=== PATIENT | female | born 1940 | race American Indian/Alaskan Native ===

== ENCOUNTER 2019-02-05 12:10 | Inpatient (IN) | payer MEDICARE ==
[2019-02-05] MEDS ORDERED: Albuterol-Ipratrop 3 mg / 0.5 (3 ml) UD IH STA (14:48)
[2019-02-05] MEDS ORDERED: Albuterol 0.083% Inhal Sol (2.5 mg/3 mL) UD INH STA (14:48)
[2019-02-05] MEDS ORDERED: Albuterol 0.083% Inhal Sol (2.5 mg/3 mL) UD ONE (16:11)
[2019-02-05] MEDS ORDERED: Albuterol-Ipratrop 3 mg / 0.5 (3 ml) UD ONE (16:11)
--- NOTE | 2019-02-05 16:58 | RAD ---
Chest x-ray single frontal view HISTORY: Dyspnea. COMPARISON: None available. FINDINGS: Biapical pleural thickening with upper lobe granulomatous changes. Patchy confluent rounded consolidative opacity at the right lung base. Clinical correlation. Post treatment interval follow-up would be helpful to ensure resolution and exclude underlying lesion. Alternatively, correlation with chest CT may be helpful. Diffuse increased interstitial lung markings. Tortuous aorta. Heart size within normal limits. Degenerative changes in the spine and shoulders. Impression: Patchy confluent rounded consolidative opacity at the right lung base. Clinical correlation. Post treatment interval follow-up would be helpful to ensure resolution and exclude underlying lesion. Alternatively, correlation with chest CT may be helpful. Diffuse increased interstitial lung markings. Biapical pleural thickening with upper lobe granulomatous changes. Tortuous aorta. This case was placed in the PA review folder.
[2019-02-05 17:06] LABS: ALB/GLOB RATIO 0.9 (1.0-2.1); ALBUMIN 3.4 g/dL (3.5-5.0); BLOOD UREA NITROGEN 17 mg/dL (7-17); CALCIUM 9.3 mg/dl (8.6-10.4); GFR NON-AFRICAN AMERICAN > 60
[2019-02-05 17:12] LABS: ALT/SGPT 10 U/L (9-52); AST/SGOT 51 U/L (14-36)
[2019-02-05 17:17] LABS: B-TYPE NATRIURETIC PEPTIDE 1200 pg/mL (0-900); CK-MB 0.79 ng/mL (0.0-3.38)
--- NOTE | 2019-02-05 17:29 | C.PDOC ---
History Of Present Illness 79 y/o female brought to ER by ambulance for evaluation of subjective fever, productive cough w/ thick mucus, and shortness of breath which has been present for the past 1 week. Patient states that she went to her PMD today and she was found to have O2 saturation level 88. referred her to the ER. Denies having CP, nausea, vomiting, and abdominal pain. <Ivett Espinal - Last Filed: 02/05/19 18:41> History Per: Patient History/Exam Limitations: no limitations Onset/Duration Of Symptoms: Days Current Symptoms Are (Timing): Still Present Severity: Moderate <Ivett Espinal - Last Filed: 02/05/19 18:41> <Aminata Blanco - Last Filed: 02/05/19 19:21> Time Seen by Provider: 02/05/19 14:27 Chief Complaint (Nursing): Cough, Cold, Congestion Past Medical History Reviewed: Historical Data, Nursing Documentation, Vital Signs Vital Signs: Last Vital Signs Temp 99.2 F 02/05/19 13:33 Pulse 112 H 02/05/19 16:54 Resp 20 02/05/19 16:54 BP 134/63 02/05/19 16:54 Pulse Ox 98 02/05/19 16:54 - Medical History PMH: Alzheimer's Disease, Asthma, HTN, Hypercholesterolemia Surgical History: No Surg Hx Family History: States: No Known Family Hx - Social History Hx Tobacco Use: No Hx Alcohol Use: No Hx Substance Use: No - Immunization History Hx Tetanus Toxoid Vaccination: No Hx Influenza Vaccination: No Hx Pneumococcal Vaccination: No <Ivett Espinal - Last Filed: 02/05/19 18:41> Vital Signs: Last Vital Signs Temp 101.3 F H 02/05/19 18:30 Pulse 112 H 02/05/19 16:54 Resp 20 02/05/19 16:54 BP 134/63 02/05/19 16:54 Pulse Ox 98 02/05/19 18:45 <Aminata Blanco - Last Filed: 02/05/19 19:21> Review Of Systems Except As Marked, All Systems Reviewed And Found Negative. Constitutional: Positive for: Fever (subjective fever) Cardiovascular: Negative for: Chest Pain Respiratory: Positive for: Cough, Shortness of Breath Gastrointestinal: Negative for: Nausea, Vomiting <Ivett Espinal - Last Filed: 02/05/19 18:41> Physical Exam - Physical Exam Appears: Non-toxic, No Acute Distress Skin: Normal Color, Warm, Dry Head: Atraumatic, Normacephalic Eye(s): bilateral: Normal Inspection Nose: Normal Oral Mucosa: Moist Neck: Supple Chest: Symmetrical Cardiovascular: Rhythm Regular Respiratory: Decreased Breath Sounds, No Rales, No Rhonchi, No Wheezing Gastrointestinal/Abdominal: Normal Exam, Soft, No Tenderness, No Guarding, No Rebound Neurological/Psych: Oriented x3, Normal Speech <RobertnhanIvett - Last Filed: 02/05/19 18:41> ED Course And Treatment - Laboratory Results Result Diagrams: 02/05/19 17:37 02/05/19 16:43 Lab Results: Troponin I 0.0380 ng/mL (0.00-0.120) 02/05/19 16:43 NT-Pro-B Natriuret Pep 1200 pg/mL (0-900) H 02/05/19 16:43 Total Bilirubin 1.0 mg/dL (0.2-1.3) 02/05/19 16:43 AST 51 U/L (14-36) H 02/05/19 16:43 ALT 10 U/L (9-52) 02/05/19 16:43 Alkaline Phosphatase 81 U/L (38-126) 02/05/19 16:43 Total Protein 7.2 g/dL (6.3-8.3) 02/05/19 16:43 Albumin 3.4 g/dL (3.5-5.0) L D 02/05/19 16:43 Globulin 3.8 gm/dL (2.2-3.9) 02/05/19 16:43 Albumin/Globulin Ratio 0.9 (1.0-2.1) L 02/05/19 16:43 O2 Sat by Pulse Oximetry: 98 (RA) Pulse Ox Interpretation: Normal - Other Rad CXR X-Ray: Viewed By Me, Read By Radiologist Interpretation: Chest x-ray single frontal view. HISTORY: Dyspnea. COMPARISON: None available. FINDINGS: Biapical pleural thickening with upper lobe granulomatous changes. Patchy confluent rounded consolidative opacity at the right lung base. Clinical correlation. Post treatment interval follow-up would be helpful to ensure resolution and exclude underlying lesion. Alternatively, correlation with chest CT may be helpful. Diffuse increased interstitial lung markings. Tortuous aorta. Heart size within normal limits. Degenerative changes in the spine and shoulders. Impression: Patchy confluent rounded consolidative opacity at the right lung base. Clinical correlation. Post treatment interval follow-up would be helpful to ensure resolution and exclude underlying lesion. Alternatively, correlation with chest CT may be helpful. Diffuse increased interstitial lung markings. Biapical pleural thickening with upper lobe granulomatous changes. Tortuous aorta. Progress Note: Labs and CXR ordered. Patient treated with nebs. CXR consistant with pneumonia. Rectal temp 101.3F. Tylenol given. Rocephin/Zithromax ordered. DDimer is significantly elevated. CTA chest ordered. Case was d/w who will accept the patient to his service, but wants CTA to be done first. <Ivett Espinal - Last Filed: 02/05/19 18:41> - Laboratory Results Result Diagrams: 02/05/19 17:37 02/05/19 16:43 Lab Results: PT 14.3 SECONDS (9.7-12.2) H 02/05/19 17:37 INR 1.3 02/05/19 17:37 APTT 24 SECONDS (21-34) 02/05/19 17:37 D-Dimer, Quantitative 5047 ng/mlDDU (0-243) H 02/05/19 17:37 Troponin I 0.0380 ng/mL (0.00-0.120) 02/05/19 16:43 NT-Pro-B Natriuret Pep 1200 pg/mL (0-900) H 02/05/19 16:43 Total Bilirubin 1.0 mg/dL (0.2-1.3) 02/05/19 16:43 AST 51 U/L (14-36) H 02/05/19 16:43 ALT 10 U/L (9-52) 02/05/19 16:43 Alkaline Phosphatase 81 U/L (38-126) 02/05/19 16:43 Total Protein 7.2 g/dL (6.3-8.3) 02/05/19 16:43 Albumin 3.4 g/dL (3.5-5.0) L D 02/05/19 16:43 Globulin 3.8 gm/dL (2.2-3.9) 02/05/19 16:43 Albumin/Globulin Ratio 0.9 (1.0-2.1) L 02/05/19 16:43 <Aminata Blanco - Last Filed: 02/05/19 19:21> Critical Care Time - Critical Care Note Total Time (in mins): 30 Documented critical care: time excludes all time spent performing seperately billable procedures. <Aminata Blanco - Last Filed: 02/05/19 19:21> Disposition - Disposition Disposition Time: 18:43 <Ivett Espinal - Last Filed: 02/05/19 18:41> Discussed With Dr.: Rocky Lewis Comment: accepted the pt on his service and took over the care at 7:20 PM Doctor Will See Patient In The: ED Counseled Patient/Family Regarding: Studies Performed, Diagnosis <Aminata Blanco - Last Filed: 02/05/19 19:21> - Disposition Disposition: HOSPITALIZED Condition: SERIOUS Forms: [facility] (Z[place]ian) - Clinical Impression Clinical Impression: Pneumonia, Hypoxia - PA / NURSING SPECIALIST / Resident Statement MD/DO has reviewed & agrees with the documentation as recorded. - Scribe Statement The provider has reviewed the documentation as recorded by the Yaryibe Chaz Rodriges Provider Attestation All medical record entries made by the Scribe were at my direction and personally dictated by me. I have reviewed the chart and agree that the record accurately reflects my personal performance of the history, physical exam, medical decision making, and the department course for this patient. I have also personally directed, reviewed, and agree with the discharge instructions and disposition. <Ivett Espinal - Last Filed: 02/05/19 18:41> Physician Patient Turnover Patient Signed Over To: Aminata Blanco Handoff Comments: CTA chest and admission to service. <Ivett Espinal - Last Filed: 02/05/19 18:41> Decision To Admit <Ivett Espinal - Last Filed: 02/05/19 18:41> - Pt Status Changed To: Hospital Disposition Of: Inpatient - Admit Certification Admit to Inpatient:: After my assessment, the patient will require hospitalization for at least two midnights. This is because of the severity of symptoms shown, intensity of services needed, and/or the medical risk in this patient being treated as an outpatient. - InPatient: Physician Admission Certification: I certify that this patient requires 2 or more midnights of care for the following reason:: After my assessment, the patient will require hospitalization for at least two midnights. This is be cause of the severity of symptoms shown, intensity of services needed, and/or the medical risk in this patient being treated as an outpatient. - . Bed Request Type: Regular Admitting Physician: Rocky Lewis <Aminata Blanco - Last Filed: 02/05/19 19:21> - . Patient Diagnosis: Pneumonia, Hypoxia
[2019-02-05 17:42] LABS: BASO # 0.1 K/uL (0.0-0.2); BASO % 0.8 % (0.0-2.0); EOS % 0.1 % (0.0-4.0); LYMPH # 1.6 K/uL (1.0-4.3); LYMPH % 12.9 % (20.0-40.0); MEAN CORPUSCULAR HEMOGLOBIN 26.9 pg (27.0-31.0); MEAN CORPUSCULAR HGB CONC 32.2 g/dL (33.0-37.0); MEAN PLATELET VOLUME 7.6 fL (7.2-11.7); MONO # 0.6 K/uL (0.0-0.8); MONO % 4.6 % (0.0-10.0); NEUT # 10.4 K/uL (1.8-7.0); NEUT % 81.6 % (50.0-75.0); NRBC % 0.1 % (0.0-2.0); RBC 3.73 Mil/uL (3.80-5.20); RED CELL DISTRIBUTION WIDTH 16.5 % (11.5-14.5)
[2019-02-05 17:43] LABS: HEMOGLOBIN 10.1 g/dL (11.0-16.0); MEAN CELL VOLUME 83.6 fL (81.0-99.0); WHITE BLOOD COUNT 12.8 K/uL (4.8-10.8)
[2019-02-05] MEDS ORDERED: Azithromycin 500 MG in Sodium Chloride 0.9% 250 ML IVPB STA (17:59)
[2019-02-05 18:04] LABS: INR 1.3; PROTHROMBIN TIME 14.3 SECONDS (9.7-12.2)
[2019-02-05] MEDS ORDERED: Azithromycin 500mg/250ML NS 500 MG/250 ML BAG IVPB ONE (19:15)
--- NOTE | 2019-02-05 19:22 | CP.PCM.HP ---
History of Present Illness - History of Present Illness History of Present Illness: Chief complaint: Cough low oxygen level HPI: Patient is a 79-year-old female with a history of hypertension, prediabetes, mild Alzheimer dementia osteoarthritis went to see her primary doctor today following the symptoms of lungs. 1 week ago patient was having increasing cough, cough associate with mucus production. And her appetite started getting worse. She was not able to eat well. And she was also getting more and more weak. Patient's daughter Mrs. Khan took her to the primary doctor today, and at that time patient was having low oxygen, and immediately patient was sent to the emergency room. In the emergency room patient was feeling increasingly weak, mostly bedridden, and also feeling extremely tired. Increasing cough noted. cough with a thick yellow brownish mucus noted. No blood noted. Chills present, now having fever. Fever associate with the chills No nausea no vomiting noted Patient does not have any other abdominal pain headache. No sick exposure Past medical history: Hypertension osteoarthritis dementia. Allergies: No known drug allergy Personal history: Non-smoker nonalcoholic. Mostly at home. Patient's family taking care of her mostly, she is able to do regular activities in the house. She able to stand up and walk usually. But recently she is also having to significant weight loss. No family history of major medical history noted. Review of system: Patient is having mild headache. Chills present. Fever noted. Patient is also having fever with chills and cough and chest rales noted. Patient is also having congested lungs. No abdominal pain. Leg pain and back pain on and off noted On examination: Vital signs are stable except mild tachycardia and also having fever and hypoxia mild noted. Chest bilateral good air entry, right lower lung rales and wheezing noted. Regular HS noted Abdomen soft nontender no pedal edema Labs reviewed Elevated WBC noted. Chest x-ray showing evidence of right lower lung infiltrative changes. CAT scan is currently pending. Assessment and recommendation: 79-year-old female with a history of hypertension osteoarthritis and mild dementia admitted now with a possible acute community-acquired pneumonia. Patient is currently on oxygen. We will continue the bronchodilators, continue the antibiotic. Elevated d-dimer. Nonspecific. We will get a VQ scan. CT of the chest ordered. DVT and GI prophylaxis. I spoke to the patient's daughter in detail. Echocardiogram carotid and a further workup will be done and will follow the patient Present on Admission - Present on Admission Any Indicators Present on Admission: No History of DVT/PE: No History of Uncontrolled Diabetes: No Urinary Catheter: No Decubitus Ulcer Present: No Past Patient History - Past Social History Smoking Status: Never Smoked - CARDIAC Hx Hypercholesterolemia: Yes Hx Hypertension: Yes - PULMONARY Hx Asthma: Yes - NEUROLOGICAL Hx Alzheimer's Disease: Yes - PSYCHIATRIC Hx Substance Use: No - SURGICAL HISTORY Hx Joint Replacement: Yes (right knee) Meds Allergies/Adverse Reactions: Allergies Allergy/AdvReac Type Severity Reaction Status Date / Time No Known Allergies Allergy Verified 02/25/15 18:44 Results - Vital Signs Recent Vital Signs: Last Vital Signs Temp 101.3 F H 02/05/19 18:30 Pulse 112 H 02/05/19 16:54 Resp 20 02/05/19 16:54 BP 134/63 02/05/19 16:54 Pulse Ox 98 02/05/19 18:45 - Labs Result Diagrams: 02/05/19 17:37 02/05/19 16:43 Labs: Laboratory Results - last 24 hr 02/05/19 02/05/19 02/05/19 16:43 16:43 17:37 WBC 12.8 H D RBC 3.73 L Hgb 10.1 L D Hct 31.2 L MCV 83.6 D MCH 26.9 L MCHC 32.2 L RDW 16.5 H Plt Count 425 H D MPV 7.6 Neut % (Auto) 81.6 H Lymph % (Auto) 12.9 L [place] % (Auto) 4.6 Eos % (Auto) 0.1 Baso % (Auto) 0.8 Neut # (Auto) 10.4 H Lymph # (Auto) 1.6 [place] # (Auto) 0.6 Eos # (Auto) 0.0 Baso # (Auto) 0.1 PT INR APTT D-Dimer, Quantitative Sodium 141 Potassium 3.8 Chloride 105 Carbon Dioxide 26 Anion Gap 14 BUN 17 Creatinine 0.6 L Est GFR ( Amer) > 60 Est GFR (Non-Af Amer) > 60 Random Glucose 83 Calcium 9.3 Total Bilirubin 1.0 AST 51 H ALT 10 Alkaline Phosphatase 81 Total Creatine Kinase 104 CK-MB (Mass) 0.79 Troponin I 0.0380 NT-Pro-B Natriuret Pep 1200 H Total Protein 7.2 Albumin 3.4 L D Globulin 3.8 Albumin/Globulin Ratio 0.9 L Influenza Typ A,B (EIA) Negative for flu a/b 02/05/19 17:37 WBC RBC Hgb Hct MCV MCH MCHC RDW Plt Count MPV Neut % (Auto) Lymph % (Auto) [place] % (Auto) Eos % (Auto) Baso % (Auto) Neut # (Auto) Lymph # (Auto) [place] # (Auto) Eos # (Auto) Baso # (Auto) PT 14.3 H INR 1.3 APTT 24 D-Dimer, Quantitative 5047 H Sodium Potassium Chloride Carbon Dioxide Anion Gap BUN Creatinine Est GFR ( Amer) Est GFR (Non-Af Amer) Random Glucose Calcium Total Bilirubin AST ALT Alkaline Phosphatase Total Creatine Kinase CK-MB (Mass) Troponin I NT-Pro-B Natriuret Pep Total Protein Albumin Globulin Albumin/Globulin Ratio Influenza Typ A,B (EIA)
[2019-02-05] MEDS: Azithromycin 500mg/250ML NS 500 MG/250 ML BAG IVPB SCH (19:28)
[2019-02-06] MEDS: Albuterol-Ipratrop 3 mg / 0.5 (3 ml) UD INH SCH ×4 (01:17→19:26)
--- NOTE | 2019-02-06 10:43 | CP.PCM.PN ---
Subjective - Date & Time of Evaluation Date of Evaluation: 02/06/19 Time of Evaluation: 10:41 - Subjective Subjective: The patient is getting the multiple testing today. She had a VQ scan, vascular Doppler for DVT study as well as echocardiogram. The official results are currently pending. Less cough noted, blood pressure stable. Cough minimally noted, thick mucus noted Patient is eating slightly better than yesterday. On examination: Vital signs stable Oxygen saturation is 97% in room air Chest good air entry, expiratory wheezing and rales noted Regular heart sounds Nontender abdomen. No pedal edema VQ scan probably low probability at this time Venous Doppler is negative CT scan of the chest showing evidence of bronchopneumonia involving the right lower lung Assessment and recommendation: 79-year-old female with a history of hypertension high cholesterol and early dementia admitted with acute pneumonia community-acquired. On antibiotic. I recommended physical therapy out of bed to chair. Feeding with assistance. DVT prophylaxis Will get the official reports of the VQ scan, venous Doppler, and echocardiogram and will follow the patient Objective - Vital Signs/Intake and Output Vital Signs (last 24 hours): Temp Pulse Resp BP Pulse Ox 98.3 F 76 20 143/87 100 02/06/19 08:00 02/06/19 08:00 02/06/19 08:00 02/06/19 08:00 02/06/19 08:00 - Medications Medications: Current Medications Acetaminophen (Tylenol 325mg Tab) 650 mg PO Q6 PRN PRN Reason: Fever >100.4 F Albuterol/Ipratropium (Duoneb 3 Mg/0.5 Mg (3 Ml) Ud) 3 ml INH RQ6 MOO Last Admin: 02/06/19 01:17 Dose: 3 ml Aspirin (Aspirin Chewable) 81 mg PO DAILY MOO Docusate Sodium (Colace) 100 mg PO BID PRN PRN Reason: Constipation Heparin Sodium (Porcine) (Heparin) 5,000 units SC Q8 MOO Last Admin: 02/06/19 05:20 Dose: 5,000 units Ceftriaxone Sodium (Rocephin Iv 1 Gm Duplex) 50 mls @ 100 mls/hr IVPB DAILY MOO; Protocol Azithromycin (Zithromax 500mg In Ns Addvantage) 500 mg in 250 mls @ 167 mls/hr IVPB Q24H MOO; Protocol Last Admin: 02/05/19 19:28 Dose: Not Given Pantoprazole Sodium (Protonix Inj) 40 mg IVP DAILY MOO Rosuvastatin Calcium (Crestor) 5 mg PO HS MOO - Labs Labs: 02/05/19 17:37 02/05/19 16:43 PT 14.3 SECONDS (9.7-12.2) H 02/05/19 17:37 INR 1.3 02/05/19 17:37 APTT 24 SECONDS (21-34) 02/05/19 17:37
--- NOTE | 2019-02-06 11:53 | VASCLAB ---
Date of service: 02/06/2019 PROCEDURE: Lower Extremity Venous Duplex Exam. HISTORY: DVT PRIORS: None. TECHNIQUE: Bilateral common femoral, femoral, popliteal and posterior tibial, peroneal and great saphenous veins were evaluated. Flow was assessed with color Doppler, compressibility, assessment of phasic flow and augmentation response. Report prepared by COY Pollack, RVT FINDINGS: RIGHT: 1. Common Femoral Vein: 1.1. Compressibility - Fully compressible: Thrombus - None : Flow - Phasic: Augmentation -Normal: Reflux - None. 2. Femoral Vein: 2.1. Compressibility - Fully compressible: Thrombus - None : Flow - Phasic: Augmentation -Normal: Reflux - None. 3. Popliteal Vein: 3.1. Compressibility - Fully compressible: Thrombus - None : Flow - Phasic: Augmentation -Normal: Reflux - None. 4. Posterior Tibial Vein: 4.1. Compressibility - Fully compressible: Thrombus - None: Flow - Phasic: Augmentation -Normal: Reflux - None. 5. Peroneal Vein: 5.1. Compressibility - Fully compressible: Thrombus - None: Flow - Phasic: Augmentation -Normal: Reflux - None. 6. Great Saphenous Vein: 6.1. Not visualized. LEFT: 1. Common Femoral Vein: 1.1. Compressibility - Fully compressible: Thrombus - None: Flow - Phasic: Augmentation -Normal: Reflux - None. 2. Femoral Vein: 2.1. Compressibility - Fully compressible: Thrombus - None: Flow - Phasic: Augmentation -Normal: Reflux - None. 3. Popliteal Vein: 3.1. Compressibility - Fully compressible: Thrombus - None : Flow - Phasic: Augmentation -Normal: Reflux - None. 4. Posterior Tibial Vein: 4.1. Compressibility - Fully compressible: Thrombus - None: Flow - Phasic: Augmentation -Normal: Reflux - None. 5. Peroneal Vein: 5.1. Compressibility - Fully compressible: Thrombus - None: Flow - Phasic: Augmentation -Normal: Reflux - None. 6. Great Saphenous Vein: 6.1. Compressibility - Fully compressible: Thrombus - None: Flow - Phasic: Augmentation - Normal: Reflux - None. OTHER FINDINGS: Right: None significant. Left: None significant. IMPRESSION: Right: No evidence of deep or superficial vein thrombosis of the right lower extremity. Normal valve function noted of the right side. Left: No evidence of deep or superficial vein thrombosis of the left lower extremity. Normal valve function noted of the left side.
[2019-02-06] MEDS: cefTRIAXone IV 1 gm in Dextros 50 ML IVPB SCH (12:04)
--- NOTE | 2019-02-06 13:17 | CT ---
Date of service: 02/05/2019 PROCEDURE: CT Chest without contrast HISTORY: Pneumonia. COMPARISON: None available. TECHNIQUE: Contiguous axial images were obtained through the chest without intravenous contrast enhancement. Sagittal and coronal reconstructions were performed. Radiation dose: Total exam DLP = 228.11 mGy-cm. This CT exam was performed using one or more of the following dose reduction techniques: Automated exposure control, adjustment of the mA and/or kV according to patient size, and/or use of iterative reconstruction technique. FINDINGS: LUNGS: There are patchy nodular and peripheral tree-in-bud opacities seen in both lower lobes right greater than left.. Minor nodular and tree-in-bud opacities also present in the in the upper lobes bilaterally including the middle lobe and lingular regions.. There is a discrete area of atelectasis in the right lung base and the lateral segment right middle lobe bordering the fissure and pleural surface. MEDIASTINUM: Heart is within range of normal. No significant pericardial effusion. Ascending thoracic aorta measures approximately 3.3 cm and descending thoracic aorta measures approximately 2.7 cm. Minor aortic atherosclerotic calcification. Pulmonary trunk is prominent in caliber measuring approximately 3.6 cm; rule out underlying pulmonary arterial hypertension. Trachea is midline and patent with no large central endoluminal lesions. No significant mediastinal adenopathy. Evaluation for hilar adenopathy is somewhat limited due to lack of circulating intravenous contrast material. PLEURA: No pleural fluid. No pneumothorax.. Mild chronic appearing biapical pleural thickening. BONES: Multilevel degenerative spondylosis with mild moderate dextroscoliosis centered in the mid to lower thoracic region. UPPER ABDOMEN: Grossly unremarkable. OTHER FINDINGS: None. IMPRESSION: There are patchy nodular and peripheral tree-in-bud opacities seen in both lower lobes right greater than left.. Minor nodular and tree-in-bud opacities also present in the in the upper lobes bilaterally including the middle lobe and lingular regions.. There is a discrete area of atelectasis in the right lung base and the lateral segment right middle lobe bordering the fissure and pleural surface.
--- NOTE | 2019-02-06 14:16 | NM ---
Date of service: 02/06/2019 COMPARISON: 02/05/2018 single-view chest. 02/05/2018 CT thorax TECHNIQUE: 6.1 mCi technetium 99-m Xe-133 Gas. 3.6 mCI technetium 99-m MAA administered intravenously. FINDINGS: VENTILATION COMPONENT: Mildly heterogeneous ventilation, air trapping on the washout phase both lungs left greater than right. Findings consistent with lower airway disease/COPD. PERFUSION COMPONENT: Heterogeneous distribution of radionuclide. No geographic, segmental, lobar abnormalities apparent on the present examination. IMPRESSION: Low probability ventilation perfusion scan for pulmonary embolism.
[2019-02-06] MEDS: Azithromycin 500mg/250ML NS 500 MG/250 ML BAG IVPB SCH (18:00)
--- NOTE | 2019-02-06 22:33 | CARD ---
APPROVED REPORT Date of service: 02/06/2019 EXAM: Two-dimensional and M-mode echocardiogram with Doppler and color Doppler. Other Information Quality : GoodRhythm : INDICATION Dyspnea RISK FACTORS Hypertension 2D DIMENSIONS IVSd0.9 (0.7-1.1cm)LVDd4.9 (3.9-5.9cm) PWd0.9 (0.7-1.1cm)LA Gofpja40 (18-58mL) LVDs3.0 (2.5-4.0cm)FS (%) 38.4 % LVEF (%)68.5 (>50%)LVEF (Khan's)63.43 % M-Mode DIMENSIONS Left Atrium (MM)3.71 (2.5-4.0cm)IVSd0.99 (0.7-1.1cm) Aortic Root2.67 (2.2-3.7cm)LVDd4.90 (4.0-5.6cm) Aortic Cusp Exc.1.87 (1.5-2.0cm)PWd0.86 (0.7-1.1cm) FS (%) 41 %LVDs2.87 (2.0-3.8cm) LVEF (%)72 (>50%) Mitral Valve MV E Gfbqzmcp12.7cm/sMV A Zvzhmthj28.7cm/sE/A ratio1.1 CHED167.01 cm/s TDI Lateral E' Peak V10.22cm/sMedial E' Peak V8.93cm/sE/Lateral E'9.2 E/Medial E'10.5 Tricuspid Valve TR Peak Mgxqconv891lu/sTR Peak Gr.[id number] LEFT VENTRICLE The left ventricle is normal size. There is normal left ventricular wall thickness. The left ventricular function is normal. The left ventricular ejection fraction is within the normal range. There is normal LV segmental wall motion. The left ventricular diastolic function is normal. RIGHT VENTRICLE The right ventricle is normal size. ATRIA The left atrium size is normal. The right atrium size is normal. AORTIC VALVE The aortic valve is normal in structure. MITRAL VALVE Mitral regurgitation is mild. TRICUSPID VALVE There is mild tricuspid regurgitation. <Conclusion> Normal LV systolic function. Normal chambe rsize. Mild MR. Mild TR.
[2019-02-07] MEDS: Albuterol-Ipratrop 3 mg / 0.5 (3 ml) UD INH SCH ×4 (01:40→20:16)
[2019-02-07 06:26] LABS: BASO % 0.8 % (0.0-2.0); EOS # 0.1 K/uL (0.0-0.7); EOS % 1.2 % (0.0-4.0); LYMPH # 1.3 K/uL (1.0-4.3); LYMPH % 25.1 % (20.0-40.0); MEAN CELL VOLUME 83.1 fL (81.0-99.0); MEAN CORPUSCULAR HEMOGLOBIN 27.2 pg (27.0-31.0); MEAN CORPUSCULAR HGB CONC 32.8 g/dL (33.0-37.0); MEAN PLATELET VOLUME 7.6 fL (7.2-11.7); MONO # 0.5 K/uL (0.0-0.8); MONO % 8.8 % (0.0-10.0); NEUT # 3.4 K/uL (1.8-7.0); NEUT % 64.1 % (50.0-75.0); NRBC % 0.1 % (0.0-2.0); RBC 3.32 Mil/uL (3.80-5.20); WHITE BLOOD COUNT 5.3 K/uL (4.8-10.8)
[2019-02-07 06:54] LABS: ALB/GLOB RATIO 0.9 (1.0-2.1); ALBUMIN 3.1 g/dL (3.5-5.0); ALT/SGPT 15 U/L (9-52); AST/SGOT 40 U/L (14-36); BLOOD UREA NITROGEN 14 mg/dL (7-17); CALCIUM 9.1 mg/dl (8.6-10.4); GFR NON-AFRICAN AMERICAN > 60
[2019-02-07] MEDS: cefTRIAXone IV 1 gm in Dextros 50 ML IVPB SCH (10:15)
[2019-02-07] MEDS: Potassium Chloride 20 mEq ER Tab PO ONE ×2 (10:18→11:00)
[2019-02-07] MEDS ORDERED: Potassium Chloride 20 mEq/15 ml LIQ UD PO ONE (11:30)
--- NOTE | 2019-02-07 14:40 | CP.PCM.PN ---
Subjective - Date & Time of Evaluation Date of Evaluation: 02/07/19 Time of Evaluation: 14:39 - Subjective Subjective: Patient's daughter at bedside. I spoke to her. Patient had a DVT study, and also study for the VQ scan negative so far. Echocardiogram is normal. Currently on antibiotic. Thick yellow mucus still present. Will add Mucomyst. Nutritional supplementation recommended. I also spoke to the family regarding the rehab placement. Family is agreeing for the plan. We will plan for possible rehab evaluation. Meanwhile we will continue the IV antibiotic. Bronchodilators. Intravenous corticosteroid low-dose. And will follow the patient Patient is a 79-year-old female with a history of hypertension diabetes and also has a history of dementia admitted with the pneumonia community-acquired Objective - Vital Signs/Intake and Output Vital Signs (last 24 hours): Temp Pulse Resp BP Pulse Ox 98.3 F 80 20 126/57 L 100 02/07/19 08:00 02/07/19 08:37 02/07/19 08:00 02/07/19 08:00 02/07/19 08:00 Intake and Output: 02/07/19 02/07/19 06:59 18:59 Intake Total 490 150 Balance 490 150 - Medications Medications: Current Medications Acetaminophen (Tylenol 325mg Tab) 650 mg PO Q6 PRN PRN Reason: Fever >100.4 F Albuterol/Ipratropium (Duoneb 3 Mg/0.5 Mg (3 Ml) Ud) 3 ml INH RQ6 [facility]OO Last Admin: 02/07/19 14:16 Dose: Not Given Aspirin (Aspirin Chewable) 81 mg PO DAILY [facility]OO Last Admin: 02/07/19 10:15 Dose: 81 mg Docusate Sodium (Colace) 100 mg PO BID PRN PRN Reason: Constipation Heparin Sodium (Porcine) (Heparin) 5,000 units SC Q8 [facility]OO Last Admin: 02/07/19 07:17 Dose: 5,000 units Ceftriaxone Sodium (Rocephin Iv 1 Gm Duplex) 50 mls @ 100 mls/hr IVPB DAILY [facility]; Protocol Last Admin: 02/07/19 10:15 Dose: 100 mls/hr Azithromycin (Zithromax 500mg In Ns Addvantage) 500 mg in 250 mls @ 167 mls/hr IVPB Q24H [facility]; Protocol Last Admin: 02/06/19 18:00 Dose: 167 mls/hr Influenza Virus Vaccine (Flucelvax Quad 0408-2807 Syr) 60 mcg IM .ONCE ONE Stop: 02/08/19 10:01 Pantoprazole Sodium (Protonix Inj) 40 mg IVP DAILY [facility] Last Admin: 02/07/19 10:15 Dose: 40 mg Pneumococcal Polyvalent Vaccine (Pneumovax 23 Vaccine) 0.5 ml IM .ONCE ONE Stop: 02/08/19 10:01 Rosuvastatin Calcium (Crestor) 5 mg PO HS [facility] Last Admin: 02/06/19 21:22 Dose: 5 mg - Labs Labs: 02/07/19 06:19 02/07/19 06:19 PT 14.3 SECONDS (9.7-12.2) H 02/05/19 17:37 INR 1.3 02/05/19 17:37 APTT 24 SECONDS (21-34) 02/05/19 17:37
[2019-02-07] MEDS: Azithromycin 500mg/250ML NS 500 MG/250 ML BAG IVPB SCH (18:03)
[2019-02-07] MEDS: Acetylcysteine 20% Inhal Soln (4ml) INH SCH ×2 (20:17)
--- NOTE | 2019-02-07 22:47 | CARD ---
APPROVED REPORT Date of service: 02/05/2019 EKG Measurement Heart [id number] MA [id number] <Conclusion> Sinus rhythm with premature atrial complexes Otherwise normal ECG
[2019-02-08] MEDS: Acetylcysteine 20% Inhal Soln (4ml) INH SCH ×4 (01:35→19:13)
[2019-02-08] MEDS: Albuterol-Ipratrop 3 mg / 0.5 (3 ml) UD INH SCH ×4 (01:35→19:13)
[2019-02-08 07:29] LABS: BASO % 0.8 % (0.0-2.0); EOS # 0.1 K/uL (0.0-0.7); EOS % 1.6 % (0.0-4.0); HEMOGLOBIN 8.6 g/dL (11.0-16.0); LYMPH # 1.3 K/uL (1.0-4.3); LYMPH % 36.4 % (20.0-40.0); MEAN CELL VOLUME 84.3 fL (81.0-99.0); MEAN CORPUSCULAR HEMOGLOBIN 26.6 pg (27.0-31.0); MEAN CORPUSCULAR HGB CONC 31.5 g/dL (33.0-37.0); MEAN PLATELET VOLUME 7.4 fL (7.2-11.7); MONO # 0.5 K/uL (0.0-0.8); MONO % 13.9 % (0.0-10.0); NEUT # 1.7 K/uL (1.8-7.0); NEUT % 47.3 % (50.0-75.0); RBC 3.24 Mil/uL (3.80-5.20); RED CELL DISTRIBUTION WIDTH 15.9 % (11.5-14.5)
[2019-02-08 07:31] LABS: WHITE BLOOD COUNT 3.7 K/uL (4.8-10.8)
[2019-02-08 07:33] LABS: ALB/GLOB RATIO 0.8 (1.0-2.1); ALBUMIN 2.7 g/dL (3.5-5.0); ALT/SGPT 16 U/L (9-52); AST/SGOT 38 U/L (14-36); BLOOD UREA NITROGEN 13 mg/dL (7-17); CALCIUM 8.9 mg/dl (8.6-10.4); GFR NON-AFRICAN AMERICAN > 60
[2019-02-08] MEDS ORDERED: Influenza Vaccine 60 mcg/0.5 mL SYR (4YR UP) IM ONE (10:00)
[2019-02-08] MEDS ORDERED: Pneumococcal 23-Valent Vaccine IM ONE (10:00)
[2019-02-08] MEDS: cefTRIAXone IV 1 gm in Dextros 50 ML IVPB SCH (10:11)
--- NOTE | 2019-02-08 12:35 | CP.PCM.PN ---
Subjective - Date & Time of Evaluation Date of Evaluation: 02/08/19 Time of Evaluation: 12:34 - Subjective Subjective: Patient still having significant cough. No fever today. No chest pain or shortness of breath. She is comfortable otherwise. On examination: Vital signs stable. Chest good air entry, expiratory wheezing noted regular HS noted, nontender abdomen no pedal edema. Labs reviewed The hemoglobin is on the low side. We will repeat the hemoglobin level tomorrow. Stool guaiac Assessment and recommendation: 7-year-old female with a history of hypertension hypercholesterolemia multiple medical problems dementia admitted with possible pneumonia. Improving at this time. Family is agreeing for rehab, discharge plan possibly tomorrow if the hemoglobin is stable Objective - Vital Signs/Intake and Output Vital Signs (last 24 hours): Temp Pulse Resp BP Pulse Ox 98.2 F 82 20 119/60 96 02/08/19 08:27 02/08/19 08:27 02/08/19 08:27 02/08/19 08:27 02/08/19 08:27 - Medications Medications: Current Medications Acetaminophen (Tylenol 325mg Tab) 650 mg PO Q6 PRN PRN Reason: Fever >100.4 F Acetylcysteine (Acetylcysteine 20%) 4 ml INH RQ6 [facility] Last Admin: 02/08/19 07:33 Dose: 4 ml Albuterol/Ipratropium (Duoneb 3 Mg/0.5 Mg (3 Ml) Ud) 3 ml INH RQ6 [facility]OO Last Admin: 02/08/19 07:33 Dose: 3 ml Aspirin (Aspirin Chewable) 81 mg PO DAILY [facility]OO Last Admin: 02/08/19 10:11 Dose: 81 mg Docusate Sodium (Colace) 100 mg PO BID [facility] Last Admin: 02/08/19 10:11 Dose: 100 mg Famotidine (Pepcid) 20 mg PO DAILY [facility] Last Admin: 02/08/19 10:11 Dose: 20 mg Heparin Sodium (Porcine) (Heparin) 5,000 units SC Q8 [facility] Last Admin: 02/08/19 05:48 Dose: 5,000 units Ceftriaxone Sodium (Rocephin Iv 1 Gm Duplex) 50 mls @ 100 mls/hr IVPB DAILY [facility]; Protocol Last Admin: 02/08/19 10:11 Dose: 100 mls/hr Azithromycin (Zithromax 500mg In Ns Addvantage) 500 mg in 250 mls @ 167 mls/hr IVPB Q24H [facility]; Protocol Last Admin: 02/07/19 18:03 Dose: 167 mls/hr Rosuvastatin Calcium (Crestor) 5 mg PO HS [facility] Last Admin: 02/07/19 21:46 Dose: 5 mg - Labs Labs: 02/08/19 06:48 02/08/19 06:48 PT 14.3 SECONDS (9.7-12.2) H 02/05/19 17:37 INR 1.3 02/05/19 17:37 APTT 24 SECONDS (21-34) 02/05/19 17:37
[2019-02-08] MEDS: Azithromycin 500mg/250ML NS 500 MG/250 ML BAG IVPB SCH (19:00)
[2019-02-09] MEDS: Acetylcysteine 20% Inhal Soln (4ml) INH SCH ×3 (01:48→14:00)
[2019-02-09] MEDS: Albuterol-Ipratrop 3 mg / 0.5 (3 ml) UD INH SCH ×3 (01:48→14:00)
[2019-02-09 02:12] VITALS: O2SAT 97
[2019-02-09 08:27] VITALS: RESP 18
[2019-02-09 08:38] LABS: EOS # 0.1 K/uL (0.0-0.7); EOS % 1.7 % (0.0-4.0); HEMOGLOBIN 8.4 g/dL (11.0-16.0); LYMPH # 1.5 K/uL (1.0-4.3); LYMPH % 43.3 % (20.0-40.0); MEAN CELL VOLUME 82.5 fL (81.0-99.0); MEAN CORPUSCULAR HEMOGLOBIN 27.5 pg (27.0-31.0); MEAN CORPUSCULAR HGB CONC 33.3 g/dL (33.0-37.0); MEAN PLATELET VOLUME 7.7 fL (7.2-11.7); MONO # 0.6 K/uL (0.0-0.8); NEUT # 1.3 K/uL (1.8-7.0); RBC 3.06 Mil/uL (3.80-5.20); RED CELL DISTRIBUTION WIDTH 15.8 % (11.5-14.5); WHITE BLOOD COUNT 3.5 K/uL (4.8-10.8)
[2019-02-09] MEDS: cefTRIAXone IV 1 gm in Dextros 50 ML IVPB SCH (09:42)
[2019-02-09] MEDS ORDERED: Influenza Vaccine 60 mcg/0.5 mL SYR (4YR UP) IM ONE (10:00)
[2019-02-09] MEDS ORDERED: Pneumococcal 23-Valent Vaccine IM ONE (10:00)
[2019-02-09 11:19] LABS: MEAN CELL VOLUME 83.1 fL (81.0-99.0); MEAN CORPUSCULAR HEMOGLOBIN 27.6 pg (27.0-31.0); MEAN CORPUSCULAR HGB CONC 33.2 g/dL (33.0-37.0); MEAN PLATELET VOLUME 7.7 fL (7.2-11.7); RBC 3.28 Mil/uL (3.80-5.20); WHITE BLOOD COUNT 4.4 K/uL (4.8-10.8)
[2019-02-09 11:42] LABS: BLOOD UREA NITROGEN 16 mg/dL (7-17); GFR NON-AFRICAN AMERICAN > 60
--- NOTE | 2019-02-09 15:28 | CP.PCM.DIS ---
Provider - Provider Date of Admission: 02/05/19 19:19 Attending physician: Rocky Lewis MD Time Spent in preparation of Discharge (in minutes): 45 Hospital Course - Lab Results Lab Results: Micro Results 02/05/19 16:00 Blood Blood Culture - Preliminary NO GROWTH AFTER 3 DAYS 02/05/19 15:30 Blood Blood Culture - Preliminary NO GROWTH AFTER 3 DAYS 02/05/19 21:35 Sputum Gram Stain - Final 02/05/19 21:35 Sputum Sputum Culture - Final Yeast Species Most Recent Lab Values WBC 4.4 K/uL (4.8-10.8) L 02/09/19 11:06 RBC 3.28 Mil/uL (3.80-5.20) L 02/09/19 11:06 Hgb 9.0 g/dL (11.0-16.0) L 02/09/19 11:06 Hct 27.2 % (34.0-47.0) L 02/09/19 11:06 MCV 83.1 fL (81.0-99.0) 02/09/19 11:06 MCH 27.6 pg (27.0-31.0) 02/09/19 11:06 MCHC 33.2 g/dL (33.0-37.0) 02/09/19 11:06 RDW 16.0 % (11.5-14.5) H 02/09/19 11:06 Plt Count 489 K/uL (130-400) H 02/09/19 11:06 MPV 7.7 fL (7.2-11.7) 02/09/19 11:06 Neut % (Auto) 38.0 % (50.0-75.0) L 02/09/19 08:31 Lymph % (Auto) 43.3 % (20.0-40.0) H 02/09/19 08:31 [place] % (Auto) 16.0 % (0.0-10.0) H 02/09/19 08:31 Eos % (Auto) 1.7 % (0.0-4.0) 02/09/19 08:31 Baso % (Auto) 1.0 % (0.0-2.0) 02/09/19 08:31 Neut # (Auto) 1.3 K/uL (1.8-7.0) L 02/09/19 08:31 Lymph # (Auto) 1.5 K/uL (1.0-4.3) 02/09/19 08:31 [place] # (Auto) 0.6 K/uL (0.0-0.8) 02/09/19 08:31 Eos # (Auto) 0.1 K/uL (0.0-0.7) 02/09/19 08:31 Baso # (Auto) 0.0 K/uL (0.0-0.2) 02/09/19 08:31 PT 14.3 SECONDS (9.7-12.2) H 02/05/19 17:37 INR 1.3 02/05/19 17:37 APTT 24 SECONDS (21-34) 02/05/19 17:37 D-Dimer, Quantitative 5047 ng/mlDDU (0-243) H 02/05/19 17:37 Sodium 137 mmol/L (132-148) 02/09/19 11:06 Potassium 4.0 mmol/L (3.6-5.2) 02/09/19 11:06 Chloride 102 mmol/L (98-107) 02/09/19 11:06 Carbon Dioxide 30 mmol/L (22-30) 02/09/19 11:06 Anion Gap 9 (10-20) L 02/09/19 11:06 BUN 16 mg/dL (7-17) 02/09/19 11:06 Creatinine 0.5 mg/dL (0.7-1.2) L 02/09/19 11:06 Est GFR ( Amer) > 60 02/09/19 11:06 Est GFR (Non-Af Amer) > 60 02/09/19 11:06 Random Glucose 113 mg/dL (65-105) H D 02/09/19 11:06 Calcium 9.0 mg/dl (8.6-10.4) 02/09/19 11:06 Phosphorus 3.1 mg/dL (2.5-4.5) 02/08/19 06:48 Magnesium 2.1 mg/dL (1.6-2.3) 02/08/19 06:48 Total Bilirubin 0.4 mg/dL (0.2-1.3) 02/08/19 06:48 AST 38 U/L (14-36) H 02/08/19 06:48 ALT 16 U/L (9-52) 02/08/19 06:48 Alkaline Phosphatase 73 U/L (38-126) 02/08/19 06:48 Total Creatine Kinase 104 U/L (30-135) 02/05/19 16:43 CK-MB (Mass) 0.79 ng/mL (0.0-3.38) 02/05/19 16:43 Troponin I 0.0380 ng/mL (0.00-0.120) 02/05/19 16:43 NT-Pro-B Natriuret Pep 1200 pg/mL (0-900) H 02/05/19 16:43 Total Protein 6.0 g/dL (6.3-8.3) L 02/08/19 06:48 Albumin 2.7 g/dL (3.5-5.0) L 02/08/19 06:48 Globulin 3.2 gm/dL (2.2-3.9) 02/08/19 06:48 Albumin/Globulin Ratio 0.8 (1.0-2.1) L 02/08/19 06:48 Influenza Typ A,B (EIA) Negative for flu a/b (NEGATIVE) 02/05/19 16:43 - Hospital Course Hospital Course: Chief complaint: Cough low oxygen level HPI: Patient is a 79-year-old female with a history of hypertension, prediabetes, mild Alzheimer dementia osteoarthritis went to see her primary doctor today following the symptoms of lungs. 1 week ago patient was having increasing cough, cough associate with mucus production. And her appetite started getting worse. She was not able to eat well. And she was also getting more and more weak. Patient's daughter Mrs. Khan took her to the primary doctor today, and at that time patient was having low oxygen, and immediately patient was sent to the emergency room. In the emergency room patient was feeling increasingly weak, mostly bedridden, and also feeling extremely tired. Increasing cough noted. cough with a thick yellow brownish mucus noted. No blood noted. Chills present, now having fever. Fever associate with the chills No nausea no vomiting noted Patient does not have any other abdominal pain headache. No sick exposure Past medical history: Hypertension osteoarthritis dementia. Allergies: No known drug allergy Personal history: Non-smoker nonalcoholic. Mostly at home. Patient's family taking care of her mostly, she is able to do regular activities in the house. She able to stand up and walk usually. But recently she is also having to significant weight loss. No family history of major medical history noted. Review of system: Patient is having mild headache. Chills present. Fever noted. Patient is also having fever with chills and cough and chest rales noted. Patient is also having congested lungs. No abdominal pain. Leg pain and back pain on and off noted On examination: Vital signs are stable except mild tachycardia and also having fever and hypoxia mild noted. Chest bilateral good air entry, right lower lung rales and wheezing noted. Regular HS noted Abdomen soft nontender no pedal edema Labs reviewed Elevated WBC noted. Chest x-ray showing evidence of right lower lung infiltrative changes. CAT scan is currently pending. Assessment and recommendation: 79-year-old female with a history of hypertension osteoarthritis and mild dementia admitted now with a possible acute community-acquired pneumonia. Patient is currently on oxygen. We will continue the bronchodilators, continue the antibiotic. Elevated d-dimer. Nonspecific. We will get a VQ scan. CT of the chest ordered. DVT and GI prophylaxis. I spoke to the patient's daughter in detail. Echocardiogram carotid and a further workup will be done and will follow the patient Course in the hospital: Patient admitted to the medical floor, patient started on intravenous IV antibiotic Zosyn. Also DVT and GI prophylaxis. Physical therapy also started over the course of next few days. Patient was started able to eat well. Clinically she was improving markedly. Her symptoms also improved markedly with oxygenation. I discussed with the patient's daughter in detail. Patient is a good candidate for subacute rehab patient will be discharged to rehab. She will continue the p.o. antibiotic bronchodilators and oxygen as needed Physical therapy to be continued Final diagnosis: Acute pneumonia right middle lung, associated with possible aspiration. Dementia advanced. Hypertension. I discussed with the patient's daughter in details about the overall prognosis we will continue the current treatment. Patient will follow up by PMD Dr. Rodriguez in the care home. Discharge Plan - Discharge Medications Prescriptions: Losartan [Cozaar] 25 mg PO DAILY #30 tab Levofloxacin [Levaquin] 500 mg PO DAILY #7 tablet - Follow Up Plan Condition: SERIOUS Disposition: TRANSF TO SNF Instructions: Levofloxacin (Systemic), Pneumonia, Adult (DC), Losartan Additional Instructions: Follow up with attending at Rehab. will f/u up as possible Referrals: Rocky Lewis MD [Staff Provider] -
[2019-02-09 17:10] VITALS: BP 140/81; PULSE 82; TEMP 98.5
== END 2019-02-09 17:30 | DRG 178 ==
LOC: C.ER 12:10 → C.9E 19:19 → C.5S 21:40
PROVIDERS: ADMIT Internal Medicine; ATTEND Internal Medicine
DX: J69.0 Pneumonitis due to inhalation of food and vomit (principal); Z68.1 Body mass index [BMI] 19.9 or less, adult; I10 Essential (primary) hypertension; G30.9 Alzheimer's disease, unspecified; F02.80 Dementia in other diseases classified elsewhere, unspecified severity, without behavioral disturbance, psychotic disturbance, mood disturbance, and anxiety; R09.02 Hypoxemia; R79.1 Abnormal coagulation profile; Z74.01 Bed confinement status; Z96.60 Presence of unspecified orthopedic joint implant; E11.9 Type 2 diabetes mellitus without complications; J45.909 Unspecified asthma, uncomplicated